=== PATIENT | female | born 1985 | race Caucasian/White ===

== ENCOUNTER 2021-05-04 10:01 | Emergency (ER) | payer OTHER ==
[2021-05-04] MEDS ORDERED: LIDOCAINE 1% INJ 10MG/ML (20 ML MDV) SQ ONE (10:50)
[2021-05-04] MEDS ORDERED: KETOROLAC 15 MG/ML 1 ML VIAL IM STA (10:50)
--- NOTE | 2021-05-04 12:45 | ED ---
Skin/Abscess/FB HPI - General Chief complaint: Skin/Abscess/Foreign Body Stated complaint: abscess Time Seen by Provider: 05/04/21 10:31 Source: patient, EMS, RN notes reviewed Mode of arrival: EMS Limitations: no limitations - History of Present Illness Initial comments: Patient is a 35-year-old female presenting to the emergency department via EMS from [place] for complaints of a right-sided labial cyst. She states it started about a week ago, she was doing warm compresses and it did go down however about 3 days ago, started to get large again and she has not been able to decrease the size of it. She states is very painful to walk, lay down or urinate. She denies any fevers or chills, no chest pain or shortness of breath, no nausea or vomiting. She is currently a [place] for meth detox. Patient states she has had these in the past. She has no further complaints. Her vital signs are stable upon arrival. - Related Data Allergies Allergy/AdvReac Type Severity Reaction Status Date / Time No Known Allergies Allergy Verified 05/04/21 10:18 Review of Systems ROS Statement: Those systems with pertinent positive or pertinent negative responses have been documented in the HPI. ROS Other: All systems not noted in ROS Statement are negative. Past Medical History Past Medical History: Hypertension History of Any Multi-Drug Resistant Organisms: None Reported Past Surgical History: Section, Tonsillectomy Past Psychological History: Anxiety, Depression, PTSD Smoking Status: Current every day smoker Past Alcohol Use History: None Reported Past Drug Use History: Marijuana, Methamphetamine General Exam - General Exam Comments Initial Comments: GENERAL: Patient is well-developed and well-nourished. Patient is nontoxic and in no acute distress. HEAD: Atraumatic, normocephalic. EYES: Pupils equal round and reactive to light, extraocular movements intact, sclera anicteric, conjunctiva are normal. Eyelids were unremarkable. LUNGS: Unlabored respirations. Breath sounds clear to auscultation bilaterally and equal. No wheezes rales or rhonchi. HEART: Regular rate and rhythm without murmurs, rubs or gallops. ABDOMEN: Soft, nontender, normoactive bowel sounds. No guarding, no rebound. No masses appreciated. MUSCULOSKELETAL: Normal extremities with adequate strength and normal range of motion, no pitting or edema. No clubbing or cyanosis. SKIN: Warm, Dry, normal turgor, no rashes or lesions noted. Limitations: no limitations External exam: Present: other (Patient has a large right sided bartholin cyst, no erythema.) Course Vital Signs 05/04/21 05/04/21 10:15 10:34 Temperature 99.5 F Pulse Rate 67 Respiratory 18 Rate Blood Pressure 160/99 O2 Sat by Pulse 66 L 95 Oximetry Procedures - Graff Protocol (Time Out) Procedure Performed:: I&D Performing Provider: Anjali Laird Nurse: Amaris Addison Timeout Date: 05/04/21 Timeout Time: 12:05 Patient Identification (2 identifiers required): Chart, Verbal, Arm Band Patient/Legal Community Health Representative has Confirmed: Identity, Site, Procedure, Consent Site: Right groin Site Marked: Yes Site Verified With Patient/Guardian: Yes Final Confirmation: Procedure, Site, Confirmed w/Provider - Incision & Drainage Consent Obtained: verbal consent, written consent Indication: Bartholin gland cyst Site: vulva/vagina Size (cm): 3 Anesthetic Used: lidocaine 1% Amount (mLs): 3 I&D Cleaning Method: Alcohol Wipe Scalpel Used: #11 I&D Drainage Obtained: Pus, Blood Patient Tolerated Procedure: well Medical Decision Making - Medical Decision Making Patient is a 35-year-old female here from [place] sent in for a large right sided bartholin gland cyst. She did consent to I&D. I did perform this procedure without complications, there was a lot of purulent drainage, she tolerated procedure well. She is stable for discharge. Case discussed with Dr. Nix. Disposition Clinical Impression: Cyst of right Bartholin's gland Disposition: HOME SELF-CARE Condition: Stable Instructions (If sedation given, give patient instructions): Abscess Incision and Drainage (DC) Additional Instructions: Please return to the Emergency Department if symptoms worsen or any other concerns. Keep area clean and dry. Continue to use warm compresses as discussed. Follow up with your PCP. Is patient prescribed a controlled substance at d/c from ED?: No Referrals: Nonstaff,Physician [Primary Care Provider] - 1-2 days Time of Disposition: 12:45
[2021-05-04 13:02] VITALS: BP 142/74; PULSE 70; RESP 17; TEMP 98.2
== END 2021-05-04 13:02 | disposition home or self-care (01) ==
LOC: EC 10:01
DX: N75.0 Cyst of Bartholin's gland (principal); I10 Essential (primary) hypertension
CPT/HCPCS: 99283; 56420; 96372; J2001; J1885

== ENCOUNTER 2021-05-06 13:08 | Emergency (ER) | payer OTHER ==
[2021-05-06 17:53] VITALS: BP 158/104; PULSE 106; RESP 18; TEMP 99.9
[2021-05-06] MEDS ORDERED: LIDOCAINE 1% INJ 10MG/ML (20 ML MDV) SQ ONE (18:15)
[2021-05-06] MEDS ORDERED: IBUPROFEN 600 MG TAB PO STA (18:15)
[2021-05-06] MEDS ORDERED: KETOROLAC 30 MG/ML 1 ML VIAL IM STA (18:58)
[2021-05-06] MEDS ORDERED: KETOROLAC 30 MG/ML 1 ML VIAL ONE (19:02)
[2021-05-06] MEDS ORDERED: CEPHALEXIN 500 MG CAP PO STA (19:20)
--- NOTE | 2021-05-06 19:22 | ED ---
General Adult HPI - General Chief complaint: Skin/Abscess/Foreign Body Stated complaint: Abscess Time Seen by Provider: 05/06/21 18:00 Source: patient Mode of arrival: ambulatory Limitations: no limitations - History of Present Illness Initial comments: 35-year-old female presents emergency department from [place] for vulvar abscess. She was seen 2 days ago for similar complaint. Patient had incision and drainage. She was not placed on antibiotics. Patient reports that she went back to [place] and the abscess grew again in size. She denies fevers. No vaginal discharge. No other alleviating, precipitating or modifying factors - Related Data Previous Rx's Medication Instructions Recorded Cephalexin [Keflex] 500 mg PO Q6HR #28 cap 05/06/21 Allergies Allergy/AdvReac Type Severity Reaction Status Date / Time No Known Allergies Allergy Verified 05/06/21 17:53 Review of Systems ROS Statement: Those systems with pertinent positive or pertinent negative responses have been documented in the HPI. ROS Other: All systems not noted in ROS Statement are negative. Past Medical History Past Medical History: Hypertension History of Any Multi-Drug Resistant Organisms: None Reported Past Surgical History: Section, Tonsillectomy Past Psychological History: Anxiety, Depression, PTSD Smoking Status: Current every day smoker Past Alcohol Use History: None Reported Past Drug Use History: Marijuana, Methamphetamine General Exam Limitations: no limitations General appearance: alert, in no apparent distress Respiratory exam: Present: normal lung sounds bilaterally. Absent: respiratory distress, wheezes, rales, rhonchi, stridor Cardiovascular Exam: Present: normal rhythm, tachycardia GI/Abdominal exam: Present: soft, normal bowel sounds. Absent: distended, tenderness, guarding, rebound, rigid External exam: Present: other (large area of swelling with fluctuance consistent with vaginal abscess on the right labia majora - measures 4 x 3 cm in size. overlying skin indurated) Speculum exam: Absent: cervical discharge, vaginal bleeding Course Vital Signs 05/06/21 17:49 Temperature 99.9 F H Pulse Rate 106 H Respiratory 18 Rate Blood Pressure 158/104 O2 Sat by Pulse 98 Oximetry Procedures - Incision & Drainage Consent Obtained: verbal consent, written consent Site: vulva/vagina Size (cm): 4 Anesthetic Used: lidocaine 1%, without epi Amount (mLs): 6 I&D Cleaning Method: Alcohol Wipe Sterile Field Used?: Yes Scalpel Used: #11 Needle Aspiration Performed?: No Irrigation Performed?: No I&D Drainage Obtained: Pus Packing: Other (word catheter) Culture Obtained?: No Patient Tolerated Procedure: well, no complications Medical Decision Making - Medical Decision Making Upon arrival patient was placed in room 27. There are history and physical exam was performed. Patient does have incision and drainage completed of her vaginal abscess once again. I did receive approximately 30 mL of purulent drainage from the site. Word catheter is placed. Patient given a dose of Keflex and will be discharged home on antibiotics. Instructed that the catheter will follow out in 2 days. He needs to follow-up with OB for permanent management. Patient agreed to the treatment plan was discharged home in stable condition Disposition Clinical Impression: Abscess of vagina Disposition: HOME SELF-CARE Condition: Stable Instructions (If sedation given, give patient instructions): Abscess Incision and Drainage (ED) Additional Instructions: The catheter will follow out its own. If it does not fall out within 48-72 hours, return to the ED. take the antibiotics as directed. Light activity until symptoms resolve. Return for any new or worsening symptoms Prescriptions: Cephalexin [Keflex] 500 mg PO Q6HR #28 cap Is patient prescribed a controlled substance at d/c from ED?: No Referrals: Nonstaff,Physician [Primary Care Provider] - 1-2 days Otto Goldman DO [Doctor of Osteopathic Medicine] - 1-2 days Time of Disposition: 19:22
== END 2021-05-06 20:03 | disposition home or self-care (01) ==
LOC: EC 13:08
DX: N76.0 Acute vaginitis (principal); I10 Essential (primary) hypertension; F17.200 Nicotine dependence, unspecified, uncomplicated
CPT/HCPCS: 99282; 56405; 96372; J2001; J1885